=== PATIENT | female | born 1965 | race Caucasian/White ===

== ENCOUNTER 2016-10-14 00:06 | Emergency (ER) | payer SELFPAY | END 2016-10-14 02:50 | disposition home or self-care (01) | LOC: D.ER 00:06 | DX: T17.228A Food in pharynx causing other injury, initial encounter (principal); X58.XXXA Exposure to other specified factors, initial encounter; Y93.89 Activity, other specified; Y92.89 Other specified places as the place of occurrence of the external cause ==